=== PATIENT | female | born 1965 ===

== ENCOUNTER 2020-03-02 12:15 | Outpatient (CLI) | payer BC ==
--- NOTE | 2020-03-02 13:35 | Cat Scan Report ---
CT ABDOMEN AND PELVIS WITHOUT CONTRAST HISTORY: R31.0 HEMATURIA COMPARISON: None. TECHNIQUE: Axial CT images were obtained through the abdomen and pelvis without IV contrast. Sagittal and coronal reformatted images. All CT scans at this location are performed using CT dose reduction for ALARA by means of automated exposure control. FINDINGS: CT ABDOMEN: Lung Bases: Clear. Liver: No significant abnormality. Biliary: No significant abnormality. Spleen: No significant abnormality. Unenlarged. Pancreas: No significant abnormality. Adrenals: No significant abnormality. Kidneys: Both kidneys are normal size, contour and position. A 9 x 12 x 11 mm stone is identified in the left renal pelvis. No evidence for obstruction. Punctate calyceal stones are also noted in the mi d right kidney and inferior left kidney. No ureteral stones are identified. No focal renal lesion. Lymphatics: No lymphadenopathy. Vasculature: No significant abnormality. Bowel/Peritoneum: No significant abnormality. No free air. No free fluid. Normal appendix. CT PELVIS: : No significant abnormality. Osseous Structures: No significant abnormality. Additional Findings: Small umbilical hernia containing fat IMPRESSION: Bilateral nephrolithiasis as described above. No hydronephrosis. Signer Name: Yevgeniy Uriarte Jr, MD Signed: 03/02/2020 1:30 PM Workstation Name: [id number]
== END 2020-03-02 12:16 | disposition home or self-care (01) ==
LOC: CT 12:15
PROVIDERS: ATTEND Urology
DX: N20.0 Calculus of kidney (principal); R31.0 Gross hematuria
CPT/HCPCS: 74176

== ENCOUNTER 2020-04-23 06:19 | Day surgery (SDC) | payer BC ==
[~2020-04-23 06:19] MED LIST: LACTATED RINGERS 1,000 ML IV SCH; MIDAZOLAM 2 MG/2 ML INJ IV NR
[2020-04-23] MEDS ORDERED: ceFAZolin/STERILE WATER 2 GM/20 ML SYRINGE IV NR (07:00)
--- NOTE | 2020-04-23 07:37 | Anesthesia Day of Surgery ---
Anesthesia Day of Surgery - Day of Surgery Patient Examined: Yes Patient H&P Reviewed: Yes Patient is NPO: Yes
--- NOTE | 2020-04-23 07:37 | Anesthesia Consultation ---
Anesthesia Consult and Med Hx Date of service: 04/23/20 - Airway Anesthetic Teeth Evaluation: Good ROM Head & Neck: Adequate Mental/Hyoid Distance: Adequate Mallampati Class: Class II Intubation Access Assessment: Probably Good - Pulmonary Exam CTA: Yes - Cardiac Exam Cardiac Exam: RRR - Pre-Operative Health Status ASA Pre-Surgery Classification: ASA2 Proposed Anesthetic Plan: General - Pulmonary Hx Smoking: No Hx Respiratory Symptoms: No Hx Sleep Apnea: No (LEWIS PRE SCREEN LOW RISK) - Cardiovascular System Hx Hypertension: Yes Hx Heart Attack/AMI: No Hx Percutaneous Transluminal Coronary Angioplasty (PTCA): No Hx Cardia Arrhythmia: No - Central Nervous System CVA: No - Endocrine Hx Renal Disease: No Hx Liver Disease: No Hx Non-Insulin Dependent Diabetes: Yes Hx Hypothyroidism: Yes - Other Systems Hx Obesity: No (BMI 31) - Additional Comments Anesthesia Medical History Comments: No hx anesthetic complications.
[2020-04-23] MEDS ORDERED: HYDROcodone/ACETAMINOPHEN 5-325 MG TAB PO PRN (08:00)
[2020-04-23] MEDS ORDERED: fentaNYL 100 MCG/2 ML INJ IV PRN (08:00)
[2020-04-23] MEDS ORDERED: HYDROmorphone 1 MG/1 ML INJ ONE (08:37)
[2020-04-23] MEDS ORDERED: propofoL 200 MG/20 ML VIAL IV ONE (08:37)
[2020-04-23] MEDS ORDERED: LIDOCAINE MPF (2%) 20 MG/1 ML VIAL 5 ML ONE (08:37)
[2020-04-23] MEDS ORDERED: ONDANSETRON 4 MG/2 ML INJ ONE (09:11)
--- NOTE | 2020-04-23 09:39 | Short Stay Summary ---
Short Stay Documentation Date of service: 04/16/20 - History H&P: obtained from office - Allergies and Medications Current Medications: Allergies No Known Allergies Allergy (Unverified 04/10/20 14:59) Home Medications Medication Instructions Recorded Confirmed Last Taken Type Euthyrox 50 mcg PO DAILY 04/10/20 04/13/20 04/22/20 History Hydroxyzine HCl 25 mg PO HS 04/10/20 04/10/20 04/22/20 History Lisinopril 10 mg PO DAILY 04/10/20 04/10/20 04/22/20 History Tamsulosin 0.4 mg PO DAILY 04/10/20 04/10/20 04/22/20 History metFORMIN 1,000 mg PO BID 04/10/20 04/10/20 04/22/20 History Active Medications Hydrocodone Bitart/Acetaminophen ([place] 5/325) 2 each PO ONCE PRN PRN Reason: Pain, Moderate (4-6) Stop: 04/23/20 17:00 Cefazolin Sodium (Ancef/Sterile Water 2 Gm/20 Ml) 2 gm IV PREOP NR Stop: 04/23/20 23:59 Fentanyl (Sublimaze) 50 mcg IV Q5MIN PRN PRN Reason: Pain , Severe (7-10) Stop: 04/23/20 18:00 Lactated Ringer's (Lactated Ringers) 1,000 mls @ 100 mls/hr IV DIRECT YAMILKA Stop: 04/23/20 23:59 Last Admin: 04/23/20 07:50 Dose: 100 mls/hr Documented by: Midazolam HCl (Versed) 2 mg IV PREOP NR Stop: 04/23/20 20:00 Last Admin: 04/23/20 07:52 Dose: 2 mg Documented by: - Brief post op/procedure progress note Date of procedure: 04/23/20 Pre-op diagnosis: left renal stone 10mm Post-op diagnosis: same Procedure: left eswl Anesthesia: SCOTT Surgeon: KRYSTLE BLACK Estimated blood loss: none Pathology: none Condition: stable - Hospital course Hospital course: david vela, post op info on chart - Disposition Condition at discharge: Stable Disposition: DC-01 TO HOME OR SELFCARE
--- NOTE | 2020-04-23 10:12 | Operative Report ---
PREOPERATIVE DIAGNOSIS: Left ____ mm kidney stone. POSTOPERATIVE DIAGNOSIS: Left ____ mm kidney stone. PROCEDURE: Left extracorporal shock wave lithotripsy, staged procedure. SURGEON: Rivas To MD ANESTHESIA: General. ESTIMATED BLOOD LOSS: Minimal. FLUIDS: Crystalloid. COMPLICATIONS: No complications. INDICATIONS: This patient is a 54-year-old female seen by Dr. Gresham in the office for hematuria. CT of abdomen and pelvis revealed ____ mm stone in the left kidney, smaller stone in the right kidney. The patient had pain in the left. They discussed options, she agreed to proceed with surgical intervention. DESCRIPTION OF PROCEDURE: The patient was taken to the operative suite, placed in a supine position. After adequate general anesthesia, the stone was localized in 2 planes using fluoroscopy. Extracorporal shock wave lithotripsy was administered with a maximum kV of 7, 2500 shocks, 5-minute renal pause after 200 shocks was performed. Adequate fragmentation could be appreciated. The patient tolerated the procedure well. She was extubated and taken to recovery room. She will go home on david Wood and follow up in the office. JOB# [id number] IKER/AB
[2020-04-23 10:22] VITALS: BP 140/81
--- NOTE | 2020-04-23 13:36 | Post Anesthesia Evaluation ---
- Post Anesthesia Evaluation Patient Participated: Yes Airway Patent: Yes Stable Respiratory Function: Yes Nausea/Vomiting: No Temp > 96.8F: Yes Pain Manageable: Yes Adequeate Hydration: Yes Anesthesia Complications: No
== END 2020-04-23 06:20 | disposition home or self-care (01) ==
LOC: OR 06:19
PROVIDERS: ATTEND Urology
DX: N20.0 Calculus of kidney (principal); I10 Essential (primary) hypertension; K21.9 Gastro-esophageal reflux disease without esophagitis; E66.9 Obesity, unspecified; E11.9 Type 2 diabetes mellitus without complications; E03.9 Hypothyroidism, unspecified; Z98.890 Other specified postprocedural states; Z79.899 Other long term (current) drug therapy; Z79.84 Long term (current) use of oral hypoglycemic drugs; Z98.51 Tubal ligation status; Z68.31 Body mass index [BMI] 31.0-31.9, adult
CPT/HCPCS: 50590; 82962; J0690; J1170; J2250; J2405; J2704; J7120

== ENCOUNTER 2020-04-30 11:54 | Day surgery (SDC) | payer BC ==
[~2020-04-30 11:54] MED LIST changes: -LACTATED RINGERS 1,000 ML IV SCH; -MIDAZOLAM 2 MG/2 ML INJ IV NR; +WATER FOR IRRIG STERILE 1,500 ML BOTTLE IR ONE; +WATER FOR IRRIG STERILE 2000 ML IR ONE
[2020-04-30] MEDS ORDERED: ONDANSETRON 4 MG/2 ML INJ IV PRN (12:58)
[2020-04-30] MEDS ORDERED: HYDROmorphone 1 MG/1 ML INJ IV PRN ×2 (12:58)
[2020-04-30] MEDS ORDERED: PANTOPRAZOLE 40 MG TAB PO ONE (12:58)
[2020-04-30] MEDS ORDERED: MAGNESIUM OXIDE 400 MG TAB PO ONE (12:58)
[2020-04-30] MEDS ORDERED: ACETAMINOPHEN 325 MG TAB PO ONE (12:58)
[2020-04-30] MEDS ORDERED: METOCLOPRAMIDE 10 MG/2 ML INJ IV NR (13:00)
[2020-04-30] MEDS ORDERED: MIDAZOLAM 2 MG/2 ML INJ IV NR (13:00)
[2020-04-30] MEDS ORDERED: PANTOPRAZOLE 40 MG INJ IV SCH (13:00)
[2020-04-30] MEDS ORDERED: LACTATED RINGERS 1,000 ML IV SCH (13:00)
[2020-04-30] MEDS ORDERED: KETOROLAC 30 MG/1 ML INJ IV ONE (13:00)
--- NOTE | 2020-04-30 13:02 | Anesthesia Day of Surgery ---
Anesthesia Day of Surgery - Day of Surgery Patient Examined: Yes Patient H&P Reviewed: Yes Patient is NPO: No (10:00 AM Love and water)
--- NOTE | 2020-04-30 13:03 | Anesthesia Consultation ---
Anesthesia Consult and Med Hx Date of service: 04/30/20 - Airway Anesthetic Teeth Evaluation: Good ROM Head & Neck: Adequate Mental/Hyoid Distance: Adequate Mallampati Class: Class III Intubation Access Assessment: Probably Good - Pre-Operative Health Status ASA Pre-Surgery Classification: ASA2, Emergency Proposed Anesthetic Plan: General - Pulmonary Hx Smoking: No Hx Asthma: No Hx Respiratory Symptoms: No SOB: No COPD: No Hx Pneumonia: No Hx Sleep Apnea: No (LEWIS PRE SCREEN LOW RISK) - Cardiovascular System Hx Hypertension: Yes Hx Heart Attack/AMI: No Hx Percutaneous Transluminal Coronary Angioplasty (PTCA): No Hx Cardia Arrhythmia: No Hx Pacemaker: No Hx Internal Defibrillator: No Hx Heart Murmur: No - Central Nervous System Hx Seizures: No CVA: No Hx Back Pain: No Hx Psychiatric Problems: No - Gastrointestinal Hx Gastroesophageal Reflux Disease: Yes - Endocrine Hx Renal Disease: Yes (Stones) Hx End Stage Renal Disease: No Hx Cirrhosis: No Hx Liver Disease: No Hx Non-Insulin Dependent Diabetes: Yes Hx Hypothyroidism: Yes - Hematic Hx Anemia: No Hx Sickle Cell Disease: No - Other Systems Hx Alcohol Use: No Hx Substance Use: No Hx Cancer: No Hx Obesity: Yes (BMI 31)
[2020-04-30] MEDS ORDERED: ceFAZolin/Water 2 GM/20 ML 2 GM/20 ML SYRINGE IV NR (14:14)
[2020-04-30] MEDS ORDERED: ONDANSETRON 4 MG/2 ML INJ ONE (16:24)
[2020-04-30] MEDS ORDERED: dexAMETHasone 20 MG/5 ML VIAL ONE (16:24)
[2020-04-30] MEDS ORDERED: propofoL 200 MG/20 ML VIAL IV ONE (16:24)
[2020-04-30] MEDS ORDERED: LIDOCAINE MPF (2%) 20 MG/1 ML VIAL 5 ML ONE (16:24)
[2020-04-30] MEDS ORDERED: fentaNYL 100 MCG/2 ML INJ ONE (16:25)
[2020-04-30] MEDS ORDERED: WATER FOR IRRIG STERILE 2000 ML IR ONE (16:44)
[2020-04-30] MEDS ORDERED: WATER FOR IRRIG STERILE 1,500 ML BOTTLE IR ONE (16:44)
[2020-04-30] MEDS ORDERED: ePHEDrine SULFATE 50 MG/1 ML INJ ONE (16:50)
[2020-04-30] MEDS ORDERED: FUROSEMIDE 40 MG/4 ML INJ ONE (17:19)
--- NOTE | 2020-04-30 17:20 | Post Operative Note ---
Date of procedure: 04/30/20 Pre-op diagnosis: ureteral stone s Post-op diagnosis: same Findings: cysdto L ureteroscopy l;aser Procedure: as above stent Anesthesia: GETA Surgeon: AGUILA JOSUE Estimated blood loss: none Pathology: list (stones) Specimen disposition: given to patient/family Condition: stable Disposition: PACU
--- NOTE | 2020-04-30 17:21 | Discharge Summary ---
Short Stay Discharge Plan Activity: other (no straining ) Weight Bearing Status: Full Weight Bearing Diet: low fat, low cholesterol, low salt Special Instructions: other (inc fluids ) Durable Medical Equipment Needed Upon Discharge: other (j stent ) Follow up with: YUVAL POLO MD [Primary Care Provider] - 7 Days AGUILA JOSUE MD [Staff Physician] - 7 Days
[2020-04-30] MEDS ORDERED: LACTATED RINGERS 1,000 ML ONE (17:31)
--- NOTE | 2020-04-30 17:36 | Operative Report ---
PREOPERATIVE DIAGNOSIS: Obstructing ureteral stones post-lithotripsy. POSTOPERATIVE DIAGNOSIS: Obstructing ureteral stones post-lithotripsy. PROCEDURE: Cystoscopy, left ureteral balloon dilatation, left retrograde, left laser of a large stone in the ureter, double-J stent. SURGEON: Dr. Gresham. ANESTHESIA: General. FINDINGS: This is a woman who presented with severe pain. She had a lithotripsy. There were stones in the ureter. She now presents for part of a staged procedure to remove and stent the ureter and remove some of the stones. DESCRIPTION OF PROCEDURE: The patient was brought to the operating room and placed on the operating table. Following induction of anesthesia, placed in lithotomy position, prepped and draped in usual sterile fashion. Cystourethroscopy showed some blood from the left orifice. Retrograde showed two stones in the distal ureter, one 8 mm. Balloon dilatation was carried out and we saw both stones, they were lasered and pieces were extracted. There was lots of edema, we did not go up to the kidney. The patient tolerated the procedure well. A double-J 7 was coiled in the kidney and bladder. The patient tolerated the procedure well. She was brought to recovery in stable condition. JOB# [id number] TONI/AB
--- NOTE | 2020-04-30 17:42 | Post Anesthesia Evaluation ---
- Post Anesthesia Evaluation Patient Participated: Yes Airway Patent: Yes Stable Respiratory Function: Yes Nausea/Vomiting: No Temp > 96.8F: Yes Pain Manageable: Yes Adequeate Hydration: Yes Anesthesia Complications: No Block Receding Appropriately: Not Applicable Patient on Ventilator: No
--- NOTE | 2020-04-30 18:02 | Fluoroscopy Report ---
FL retrograde urography INDICATION / CLINICAL INFORMATION: LEFT URETER STONE. COMPARISON: None available. FINDINGS: Retrograde examination performed demonstrating distal left ureteral filling defects. Successful doubl e-J stent placement. Fluoroscopy time: 30 seconds.. Fluoroscopic images: 9. Signer Name: Jamin Murguia MD Signed: 04/30/2020 5:58 PM Workstation Name: [id number]
[2020-04-30 18:10] VITALS: BP 139/70
== END 2020-04-30 18:39 | disposition home or self-care (01) ==
LOC: OR 11:54
PROVIDERS: ATTEND Urology
DX: N13.2 Hydronephrosis with renal and ureteral calculous obstruction (principal); R31.0 Gross hematuria; I10 Essential (primary) hypertension; K21.9 Gastro-esophageal reflux disease without esophagitis; E66.9 Obesity, unspecified; E11.9 Type 2 diabetes mellitus without complications; E03.9 Hypothyroidism, unspecified; Z79.899 Other long term (current) drug therapy; Z79.84 Long term (current) use of oral hypoglycemic drugs; Z98.890 Other specified postprocedural states
CPT/HCPCS: 52356; 74420; 82962; A4217; C1726; C1758; C1769; C2617; C9113; J0690; J1100; J1885; J1940; J2250; J2405; J2704; J2765; J3010; J7120; Q9967

== ENCOUNTER 2020-05-19 13:46 | Outpatient (CLI) | payer BC ==
[2020-05-19 14:53] LABS: Blood Urea Nitrogen 11 mg/dL (7-17)
--- NOTE | 2020-05-19 16:47 | Cat Scan Report ---
CT ABDOMEN AND PELVIS WITHOUT CONTRAST INDICATION / CLINICAL INFORMATION: HYDRONEPHROSIS WITH RENAL AND URETERAL CALCULOUS. TECHNIQUE: Axial CT images were obtained through the abdomen and pelvis without IV contrast. All CT scans at this location are performed using CT dose reduction for ALARA by means of automated exposure control. COMPARISON: CT dated 03/02/20 FINDINGS: LOWER CHEST: No significant abnormality. LIVER: No significant abnormality. GALLBLADDER: No significant abnormality. BILE DUCTS: No significant abnormality. PANCREAS: No significant abnormality. SPLEEN: No significant abnormality. ADRENALS: No significant abnormality. RIGHT KIDNEY / URETER: Tiny nonobstructing intrarenal stone but no ureteral stone or hydronephrosis. LEFT KIDNEY / URETER: Large left intrarenal stone appears to have undergone lithotripsy with several smaller nonobstructing stones in the lower pole. Left ureteral stent is present in expected position. No hydronephrosis. STOMACH / SMALL BOWEL: No significant abnormality. COLON: No significant abnormality. APPENDIX: No significant abnormality. PERITONEUM: No free fluid. No free air. No fluid collection. LYMPH NODES: No significant adenopathy. AORTA / ARTERIES: No significant abnormality. IVC / VEINS: No significant abnormality. URINARY BLADDER: No stones or other acute abnormality. REPRODUCTIVE ORGANS: No significant abnormality. ADDITIONAL FINDINGS: None. SKELETAL SYSTEM: No significant abnormality. IMPRESSION: 1. Left intrarenal nonobstructing stones with left ureteral stent in place. No hydronephrosis. 2. Tiny nonobstructing right intrarenal stone. No ureteral stone or hydronephrosis. Signer Name: Donna Read MD Signed: 05/19/2020 4:42 PM Workstation Name: [id number]
== END 2020-05-19 13:47 | disposition home or self-care (01) ==
LOC: CT 13:46
PROVIDERS: ATTEND Urology
DX: N20.0 Calculus of kidney (principal)
CPT/HCPCS: 36415; 74176; 82565; 84520

== ENCOUNTER 2020-12-28 07:18 | Day surgery (SDC) | payer BC ==
[~2020-12-28 07:18] MED LIST changes: +LACTATED RINGERS 1,000 ML IV SCH; +MIDAZOLAM 2 MG/2 ML INJ IV NR; -WATER FOR IRRIG STERILE 1,500 ML BOTTLE IR ONE; -WATER FOR IRRIG STERILE 2000 ML IR ONE
--- NOTE | 2020-12-28 08:32 | Anesthesia Consultation ---
Anesthesia Consult and Med Hx Date of service: 12/28/20 - Airway Anesthetic Teeth Evaluation: Good ROM Head & Neck: Adequate Mental/Hyoid Distance: Adequate Mallampati Class: Class II Intubation Access Assessment: Probably Good - Pre-Operative Health Status ASA Pre-Surgery Classification: ASA2 Proposed Anesthetic Plan: General - Pulmonary Hx Smoking: No Hx Respiratory Symptoms: No Hx Sleep Apnea: No (LEWIS PRE SCREEN LOW RISK) - Cardiovascular System Hx Hypertension: Yes Hx Heart Attack/AMI: No Hx Percutaneous Transluminal Coronary Angioplasty (PTCA): No - Central Nervous System Hx Back Pain: Yes - Endocrine Hx Renal Disease: No Hx Liver Disease: No Hx Non-Insulin Dependent Diabetes: Yes Hx Hypothyroidism: Yes - Additional Comments Anesthesia Medical History Comments: No hx anesthetic complications.
[2020-12-28] MEDS ORDERED: HYDROcodone/ACETAMINOPHEN 5-325 MG TAB PO PRN (08:33)
[2020-12-28] MEDS ORDERED: ONDANSETRON 4 MG/2 ML INJ IV PRN (08:33)
--- NOTE | 2020-12-28 08:33 | Anesthesia Day of Surgery ---
Anesthesia Day of Surgery - Day of Surgery Patient Examined: Yes Patient H&P Reviewed: Yes Patient is NPO: Yes
[2020-12-28] MEDS ORDERED: ceFAZolin/STERILE WATER 2 GM/20 ML SYRINGE IV NR (09:00)
[2020-12-28] MEDS ORDERED: dexAMETHasone 20 MG/5 ML VIAL ONE (10:00)
[2020-12-28] MEDS ORDERED: ONDANSETRON 4 MG/2 ML INJ ONE (10:00)
[2020-12-28] MEDS ORDERED: PHENYLEPHRINE/NS 1,000 MCG/10 ML SYRINGE (OR USE) IV ONE (10:00)
[2020-12-28] MEDS ORDERED: fentaNYL 100 MCG/2 ML INJ ONE (10:12)
[2020-12-28] MEDS ORDERED: propofoL 200 MG/20 ML VIAL IV ONE (10:12)
[2020-12-28] MEDS ORDERED: LIDOCAINE MPF (2%) 20 MG/1 ML VIAL 5 ML ONE (10:12)
[2020-12-28] MEDS ORDERED: IOHEXOL 300 MG/ML 50ML IV ONE (11:42)
--- NOTE | 2020-12-28 12:41 | Post Operative Note ---
Date of procedure: 12/28/20 Pre-op diagnosis: large left ureteral stone Post-op diagnosis: same Procedure: ureteroscopy laser stent Anesthesia: GETA Surgeon: AGUILA JOSUE Estimated blood loss: none Pathology: list (stone) Specimen disposition: given to patient/family Condition: stable Disposition: PACU
--- NOTE | 2020-12-28 12:43 | Discharge Summary ---
Short Stay Discharge Plan Activity: other (no striaining ) Weight Bearing Status: Full Weight Bearing Diet: low fat, low cholesterol, low salt Special Instructions: other (inc fluids ) Durable Medical Equipment Needed Upon Discharge: other (and j stnet ) Follow up with: YUVAL POLO MD [Primary Care Provider] - 7 Days AGUILA JOSUE MD [Staff Physician] - 7 Days
[2020-12-28] MEDS: HYDROmorphone 1 MG/1 ML INJ IV PRN ×2 (13:05→13:15)
--- NOTE | 2020-12-28 13:34 | Operative Report ---
DATE OF SURGERY: 12/28/2020 PREOPERATIVE DIAGNOSIS: Very large left distal ureteral stone. POSTOPERATIVE DIAGNOSIS: Very large left distal ureteral stone. PROCEDURE PERFORMED: Cystoscopy, left retrograde, left ureteroscopy with laser of large stone and double-J stent stone extraction. SURGEON: Carlos Gresham MD. ANESTHESIA: General. FINDINGS: This is a woman with a very large 7-8 mm distal stone. All risks discussed. She now presents for treatment. DESCRIPTION OF PROCEDURE: The patient was brought to the operating room and placed on the operating table. Following induction of anesthesia, placed in lithotomy position, prepped and draped in usual sterile fashion. Cystourethroscopy showed some cystitis cystica. The urethra was narrow. She had a little bit of a cystocele. Retrograde showed a very large stone in the distal ureter. We were able to get a wire by it after a retrograde showed a very tight impacted stone. Balloon dilatation just distal to the stone was carried out and we were able to see the stone. It was totally wedged in the wall. We were able to laser it into many, many pieces. Some of the pieces were given to the patient. The patient tolerated the procedure well. A second wire was placed as well through the open ureter and we placed a 7-Gambian double J. The patient tolerated the procedure well and brought to recovery in stable condition. TID: [id number] RECEIPT: [id number] TONI/SYED
--- NOTE | 2020-12-28 14:37 | Post Anesthesia Evaluation ---
- Post Anesthesia Evaluation Patient Participated: Yes Airway Patent: Yes Nausea/Vomiting: No Temp > 96.8F: Yes Pain Manageable: Yes Adequeate Hydration: Yes Anesthesia Complications: No
[2020-12-28 17:02] VITALS: BP 135/64
--- NOTE | 2020-12-28 17:43 | Fluoroscopy Report ---
Retrograde ureterogram INDICATION: Left ureteral calculus IMPRESSION: Retrograde ureterogram demonstrated several filling defects within the distal left ureter consistent with calculi a left double-J ureteral stent was subsequently placed in expected position Fluoroscopy time: 1 minute 40 seconds. Fluoroscopic images: 4. Signer Name: Edward Daniels MD Signed: 12/28/2020 5:39 PM Workstation Name: [id number]
== END 2020-12-28 07:19 | disposition home or self-care (01) ==
LOC: OR 07:18
PROVIDERS: ATTEND Urology
DX: N20.1 Calculus of ureter (principal); I10 Essential (primary) hypertension; K21.9 Gastro-esophageal reflux disease without esophagitis; E11.9 Type 2 diabetes mellitus without complications; E03.9 Hypothyroidism, unspecified; Z79.899 Other long term (current) drug therapy; Z98.51 Tubal ligation status; Z79.84 Long term (current) use of oral hypoglycemic drugs; Z98.890 Other specified postprocedural states
CPT/HCPCS: 52356; 74420; 74485; 82962; C1726; C1758; C1769; C2617; J0690; J1100; J1170; J2250; J2370; J2405; J2704; J3010; J7120; Q9967